=== PATIENT | male | born 2000 | race Caucasian/White ===

== ENCOUNTER 2023-10-03 08:01 | Day surgery (SDC) | payer OTHER, BC, SELFPAY ==
--- NOTE | 2023-10-03 | PATH_ITS ---
[facility] Accession Number: [id number] No. of containers..01 Tissue . 01 Material submitted: . body - RANDOM BIOPSY . 01 Diagnosis: COLON, RANDOM, BIOPSIES: Benign colonic mucosa fragments with mild focal active colitis. Negative for dysplasia, granuloma, or malignancy. See comment. -- Comment: There is mild focal active colitis with mild architectural crypt changes with no definite chronic colitis seen. The histologic changes are compatible with the provided clinical history of ulcerative pancolitis (per provided ICD10 code K51.00). TXN 10/05/2023 1302 Local . 01 Electronically signed: . Onofre Robertson MD, Pathologist NPI- [id number] . 01 Gross description: . Received in formalin with two patient identifiers and random biopsy, are four lisa soft tissue fragments, 0.3 to 0.2 cm in greatest dimension. Submitted entirely in A1. ([id number]) /MRV 10/04/2023 1825 Local . 01 Pathologist provided ICD-10: K51.00 . 01 CPT . 073641 Specimen Comment: A courtesy copy of this report has been sent to [phone] Performed at: [address] [facility] [address], [place], [place] [id number] MD Romaine Ramirez MD Phone: [phone]
[2023-10-03 08:29] VITALS: BP 126/71; PULSE 67; RESP 17; TEMP 36.2; O2SAT 96
--- NOTE | 2023-10-03 08:30 | PM.HP.1 ---
History of Present Illness History of Present Illness Date Patient Seen: 10/03/23 Chief complaint: SDC Narrative: History of ulcerative colitis on Entyvio with bowel movements once to twice per day and no blood. Need to assess for treatment response and whether complete mucosal healing has been achieved. [facility] Medical History (Updated 10/03/23 @ 08:23 by Sylvester Nick RN) Depression Ulcerative colitis Social History Smoking Status: Current some day smoker alcohol intake: current Meds Home Medications and Allergies Home Medications Medication Instructions Recorded Confirmed Type vedolizumab 300 mg intravenous 300 mg IV Q8W 10/03/23 10/03/23 History solution (Entyvio) venlafaxine 37.5 mg 37.5 mg PO DAILY 10/03/23 10/03/23 History capsule,extended release 24 hr Allergies Allergy/AdvReac Type Severity Reaction Status Date / Time No Known Drug Allergies Allergy Verified 10/03/23 08:19 Exam Narrative Exam Narrative: Oropharynx free of lesions Chest clear to auscultation percussion Cardiac exam reveals no S3 or murmur Assessment & Plan Assessment & Plan narrative: History of ulcerative colitis with good response to Entyvio. Need to check for treatment response. Risks, benefits, alternatives have been explained.
--- NOTE | 2023-10-03 08:31 | PM.OP.COLON ---
Operative Date/Time/Diagnoses Date of procedure: 10/03/23 Pre-op diagnosis: See indication and findings Procedure & Clinicians Study performed: Colonoscopy Indications: Ulcerative colitis Surgeon: Steven Omer Procedure Notes Procedure in detail: After informed consent was obtained the patient was placed in left lateral decubitus position. The video colonoscope was introduced the rectum slowly advanced cecum. Preparation was good. On slow withdrawal mucosa was carefully examined. The scope was removed. The patient tolerated procedure well. Blood loss none Complications none Sedation mac Findings 1. At least 2.5 cm semi sessile polyp in the distal right colon. This was treated both on face and retroflexed view with EMR technique. The polyp was injected with spot proximally to bring the bulk of it for word and get a better view. Polyp was then removed piecemeal. There. To be some residual tissue and therefore a straight viewing APC probe was used to ablate the remainder. No complications were noted 2. Otherwise negative colonoscopy to cecum. In general the colonic mucosa appeared an impressive This apprise large polyp will require that Mr. Vuong have follow-up colonoscopy in 3 months to assure that this is completely removed. Photos were given to the patient
[2023-10-03] MEDS: LACTATED RINGERS 1,000 ML 42 ML IV (08:33)
--- NOTE | 2023-10-03 09:46 | PM.OP.COLON ---
Operative Date/Time/Diagnoses Date of procedure: 10/03/23 Pre-op diagnosis: History of ulcerative colitis need to check for complete healing Procedure & Clinicians Study performed: Colonoscopy Surgeon: Steven Omer Procedure Notes Procedure in detail: After informed consent was obtained the patient placed in left lateral decubitus position. The video colonoscope was introduced the rectum slowly advanced cecum. Preparation was good. On slow withdrawal mucosa was carefully examined. The scope was removed. The patient tolerated procedure well. Blood loss none Complications none Sedation mac Findings 1. Essentially normal colonoscopy to cecum. There was perhaps very mild abnormality to the vascular pattern. A few random biopsies were taken to rule out microscopic changes. Patient will follow up with Anup Edward in our office.
[2023-10-03 09:49] VITALS: BP 96/52; PULSE 75; RESP 16; TEMP 37.1; O2SAT 95
[2023-10-03 09:54] VITALS: BP 94/58; PULSE 70; RESP 15; O2SAT 95
[2023-10-03 10:00] VITALS: BP 102/66; PULSE 75; RESP 13; TEMP 36.8; O2SAT 99
[2023-10-03 10:05] VITALS: BP 108/70; PULSE 83; RESP 14; TEMP 36.8; O2SAT 99
[2023-10-03 10:09] VITALS: BP 96/57; PULSE 68; RESP 16; TEMP 36.8; O2SAT 98
== END 2023-10-03 10:17 | disposition home or self-care (01) ==
PROVIDERS: Referring Provider Internal Medicine Gastroenterology; Visit Provider Internal Medicine Gastroenterology
PROC: 0DJD8ZZ Inspection of Lower Intestinal Tract, Via Natural or Artificial Opening Endoscopic (ICD-10-PCS; CPT 45378; principal; 2023-10-03 09:00)
DX: Z87.19 Personal history of other diseases of the digestive system (principal); Z09 Encounter for follow-up examination after completed treatment for conditions other than malignant neoplasm; K52.9 Noninfective gastroenteritis and colitis, unspecified
CPT/HCPCS: 45380; J2704